=== PATIENT | male | born 1955 | race Caucasian/White ===

== ENCOUNTER 2016-07-05 07:40 | Observation (INO) | payer BC ==
[2016-07-05] MEDS ORDERED: Morphine INJ* 4 MG/ML 1 ML CARPUJECT IV ONE ×3 (08:32→11:52)
[2016-07-05] MEDS ORDERED: Ondansetron INJ* 2 MG/ML VIAL IV ONE (08:32)
[2016-07-05] MEDS ORDERED: NS 0.9% 1000 ML* 1,000 ML IV ONE (08:32)
[2016-07-05 08:51] LABS: Hematocrit 52 % (42-52); Hemoglobin 17.6 g/dl (14.0-18.0); Mean Corpuscular HGB Conc 34 g/dl (31-36); Mean Corpuscular Hemoglobin 29 pg (27-31); Mean Corpuscular Volume 85 fL (80-94); Mean Platelet Volume 7 um3 (7.4-10.4); Red Blood Count 6.09 10^6/ul (4.0-5.4); Red Cell Distribution Width 14 % (10.5-15); White Blood Count 15.6 10^3/ul (3.5-10.8)
[2016-07-05 09:03] LABS: ALT 18 U/L (7-52); AST 15 U/L (13-39); Albumin 4.3 g/dL (3.2-5.2); Alkaline Phosphatase 53 U/L (34-104); Amylase 71 U/L (29-103); Anion Gap 7 mmol/L (2-11); BUN/Creatinine Ratio 12.6 (8-20); Blood Urea Nitrogen 11 mg/dL (6-24); C Reactive Protein 81.62 mg/L (< 5.00); CO2 Carbon Dioxide 26 mmol/L (22-32); Calcium 9.6 mg/dL (8.6-10.3); Chloride 98 mmol/L (101-111); EGFR African American 115.5 (>60); EGFR Non-African American 89.8 (>60); Globulin 3.4 g/dL (2-4); Glucose 131 mg/dL (70-100); Lipase < 10 U/L (11.0-82.0); Potassium 3.9 mmol/L (3.5-5.0); Sodium 131 mmol/L (133-145); Total Protein 7.7 g/dL (6.4-8.9)
--- NOTE | 2016-07-05 09:11 | ED ---
Abdominal Pain/Male - HPI Summary HPI Summary: Patient presents with LLQ pain that radiates to the left flank that has become progressively worse over the last three days. He was able to work this weekend with the pain, but this morning he was in excruciating pain. He had a kidney stone approximately 12 years ago and this feels similar. He feels nauseous and has vomited several times. He feels bloated, like he is constipated and hasn't had a BM since yesterday. He denies urinary symptoms. His pain is constant and intense. He denies SOB, CP, back pain or fever. - History of Current Complaint Chief Complaint: EDAbdPain Stated Complaint: LT SIDE FLANK PAIN Time Seen by Provider: 07/05/16 08:22 Hx Obtained From: Patient, Family/Food Service Director Onset/Duration: Gradual Onset Timing: Constant Severity Initially: Mild Severity Currently: Severe Pain Intensity: 9 Location: Discrete At: LLQ Radiates: Yes Radiates to: Flank Character: Sharp Aggravating Factor(s): Movement Alleviating Factor(s): Nothing Associated Signs And Symptoms: Positive: Nausea, Vomiting - Allergies/Home Medications Allergies/Adverse Reactions: Allergies Allergy/AdvReac Type Severity Reaction Status Date / Time ENVIRONMENTAL Allergy EYES PUFFY Uncoded 07/05/16 07:53 PMH/Surg Hx/FS Hx/Imm Hx Endocrine/Hematology History: Denies: Hx Anticoagulant Therapy, Hx Diabetes, Hx Thyroid Disease Cardiovascular History: Reports: Hx Hypercholesterolemia, Hx Hypertension - ON MEDS, Other Cardiovascular Problems/Disorders Denies: Hx Pacemaker/ICD, Hx Peripheral Vascular Disease Respiratory History: Reports: Hx Sleep Apnea Denies: Hx Asthma, Hx Chronic Obstructive Pulmonary Disease (COPD) GI History: Denies: Hx Ulcer History: Reports: Hx Kidney Stones - YEARS AGO Denies: Hx Renal Disease Musculoskeletal History: Reports: Hx Arthritis, Hx Back Problems Denies: Hx Osteoporosis Sensory History: Reports: Hx Cataracts - BILATERAL Denies: Hx Contacts or Glasses, Hx Glaucoma, Hx Hearing Aid Opthamlomology History: Reports: Hx Cataracts - BILATERAL Denies: Hx Contacts or Glasses, Hx Glaucoma Neurological History: Denies: Hx Headaches, Hx Seizures, Hx Transient Ischemic Attacks (TIA) Psychiatric History: Denies: Hx Anxiety, Hx Depression, Hx Panic Disorder - Surgical History Surgery Procedure, Year, and Place: shoulder surgery. right knee surgery. Deviated septum Hx Anesthesia Reactions: No Infectious Disease History: No Infectious Disease History: Denies: Hx Clostridium Difficile, Hx Hepatitis, Hx Human Immunodeficiency Virus (HIV), Hx of Known/Suspected MRSA, Hx Shingles, Hx Tuberculosis, Hx Known/ Suspected VRE, Hx Known/Suspected VRSA, History Other Infectious Disease, Traveled Outside the [place] in Last 30 Days - Family History Known Family History: Positive: Cardiac Disease, Hypertension - Social History Occupation: Employed Full-time Lives: With Family Alcohol Use: Rare Hx Substance Use: No Substance Use Type: Reports: None Hx Tobacco Use: No Smoking Status (MU): Never Smoked Tobacco Review of Systems Negative: Fever, Chills Negative: Chest Pain Negative: Shortness Of Breath Positive: Abdominal Pain, Vomiting, Nausea. Negative: Diarrhea Positive: flank pain Negative: Headache All Other Systems Reviewed And Are Negative: Yes Physical Exam Triage Information Reviewed: Yes Vital Signs On Initial Exam: Initial Vitals Temp Pulse Resp BP Pulse Ox 99.0 F 105 16 147/93 97 07/05/16 07:47 07/05/16 07:47 07/05/16 07:47 07/05/16 07:47 07/05/16 07:47 Vital Signs Reviewed: Yes Appearance: Positive: Well-Appearing, Pain Distress, Obese Skin: Positive: Warm, Skin Color Reflects Adequate Perfusion, Dry, Soft Head/Face: Positive: Normal Head/Face Inspection Eyes: Positive: EOMI, LIAM, Conjunctiva Clear ENT: Positive: Hearing grossly normal Respiratory/Lung Sounds: Positive: Clear to Auscultation, Breath Sounds Present Cardiovascular: Positive: RRR Abdomen Description: Positive: Soft, Guarding. Negative: Nontender - TTP LLQ pain; non-tender in other areas, CVA Tenderness (R), CVA Tenderness (L), Distended, Hepatomegaly, McBurney's Point Tenderness, Peritoneal Signs, Pulsatile Mass, Splenomegaly Bowel Sounds: Positive: Hypoactive Musculoskeletal: Positive: Strength/ROM Intact. Negative: Edema Left, Edema Right Neurological: Positive: Sensory/Motor Intact, Alert, Oriented to Person Place, Time, NV Bundle Intact Distally Psychiatric: Positive: Affect/Mood Appropriate AVPU Assessment: Alert Diagnostics - Vital Signs Vital Signs Temp Pulse Resp BP Pulse Ox 07/05/16 08:42 16 07/05/16 07:47 99.0 F 105 16 147/93 97 - Laboratory Lab Results: Lab Results 07/05/16 Range/Units 08:15 WBC 15.6 H (3.5-10.8) 10^3/ul RBC 6.09 H (4.0-5.4) 10^6/ul Hgb 17.6 (14.0-18.0) g/dl Hct 52 (42-52) % MCV 85 (80-94) fL MCH 29 (27-31) pg MCHC 34 (31-36) g/dl RDW 14 (10.5-15) % Plt Count 257 (150-450) 10^3/ul MPV 7 L (7.4-10.4) um3 Neut % (Auto) 87.5 H (38-83) % Lymph % (Auto) 5.5 L (25-47) % [place] % (Auto) 6.6 (1-9) % Eos % (Auto) 0.1 (0-6) % Baso % (Auto) 0.3 (0-2) % Absolute Neuts (auto) 13.7 H (1.5-7.7) 10^3/ul Absolute Lymphs (auto) 0.9 L (1.0-4.8) 10^3/ul Absolute Monos (auto) 1.0 H (0-0.8) 10^3/ul Absolute Eos (auto) 0 (0-0.6) 10^3/ul Absolute Basos (auto) 0 (0-0.2) 10^3/ul Absolute Nucleated RBC 0.01 10^3/ul Nucleated RBC % 0 Result Diagrams: 07/05/16 08:15 07/05/16 08:15 Lab Statement: Any lab studies that have been ordered have been reviewed, and results considered in the medical decision making process. - CT No standard instances CT Interpretation: Positive (See Comments) CT Interpretation Completed By: Radiologist - Diverticulitis Re-Evaluation - Re-Evaluation First Eval Re-Evaluation Time: 09:30 Change: Worse - pain increased Second Eval Re-Evaluation Time: 11:00 Change: Improved Third Eval Re-Evaluation Time: 11:45 Change: Worse Fourth Eval Re-Evaluation Time: 12:30 Change: Improved Abdominal Pain Fem Course/Dx - Diagnoses Differential Diagnosis/HQI/PQRI: Abdominal Aortic Aneurysm, Appendicitis, Bowel Obstruction, Constipation, Diverticulitis, Gall Bladder Disease, Renal Colic, Urinary Tract Infection Provider Diagnoses: Diverticulitis - Provider Notifications Instructed by Provider To: Have Pt Call For Appt. Discharge - Discharge Plan Condition: Stable Disposition: HOME Prescriptions: Amoxicillin/Clavulanate TAB* [Augmentin TAB 500 mg*] 500 mg PO TID #20 tab Ondansetron ODT TAB* [Zofran Odt TAB*] 4 mg PO Q8H PRN #15 tab.odt PRN Reason: Nausea oxyCODONE/Acetamin 5/325 MG* [Percocet 5/325 TAB*] 1 tab PO Q8H PRN #6 tab MDD 3 PRN Reason: Pain Patient Education Materials: Diverticulitis (ED), Diverticulitis Diet (ED) Referrals: Abi Alcantar MD [Primary Care Provider] - Additional Instructions: Please take your antibiotics until they are completely gone. Use pain medication as needed and follow-up with your primary care provider this week for re-evaluation. Return to the emergency department if symptoms worsen.
--- NOTE | 2016-07-05 09:16 | RAD ---
INDICATION: Left flank dominant pain. COMPARISON: Comparison is made with a prior CT of the abdomen and pelvis from July 08, 2015. TECHNIQUE: Multiple real-time images of the left kidney were obtained. FINDINGS: The left kidney is normal in size shape and echogenicity. The kidney measured 12.4 x 7.0 x 5.6. cm. There are 2 small cysts in the midportion of the left kidney measuring 0.8 x 0.8 x 1.0 cm and 1.2 x 1.2 x 0.8 cm. No hydronephrosis is seen. IMPRESSION: NO EVIDENCE FOR HYDRONEPHROSIS.
[2016-07-05 09:38] LABS: Urine Bacteria Absent (Absent); Urine Bilirubin Negative (Negative); Urine Glucose Negative (Negative); Urine Nitrite Negative (Negative)
[2016-07-05] MEDS ORDERED: Iohexol 300* (CONTRAST) 10 ML SDV IV ONE (10:00)
--- NOTE | 2016-07-05 11:54 | RAD ---
CLINICAL HISTORY: Left lower quadrant pain COMPARISON: July 08, 2015 TECHNIQUE: Multiple contiguous axial CT scans were obtained of the abdomen and pelvis after the administration of intravenous contrast. Coronal and sagittal multiplanar reformations are submitted for review. Oral contrast was administered. Delayed images were obtained through the abdomen FINDINGS: LUNG BASES: The lung bases are clear. LIVER: There are multiple low-attenuation hepatic parenchymal lesions. These are too small to definitively characterize. These are similar to the previous noncontrast examination. BILE DUCTS: There is no intrahepatic or extrahepatic biliary dilatation. GALLBLADDER: The gallbladder is not visualized. Surgical clips are noted in the gallbladder fossa. PANCREAS: The pancreas is normal, without mass or ductal dilatation. SPLEEN: Normal in size and appearance. UPPER GI TRACT: Evaluation of the gastrointestinal tract is limited by incomplete gastric distention. There is moderate hiatal hernia. SMALL BOWEL AND MESENTERY: The small bowel is normal in contour, course, and caliber. There is no obstruction or dilatation. COLON: There is diverticulosis of the descending and sigmoid colon. There is extensive stranding of the perisigmoid fat with mucosal thickening. There is a small amount of fluid tracking along the lateroconal fascia, without loculated fluid collection. ADRENALS: Normal bilaterally. KIDNEYS: Small renal cysts are noted. There is no hydronephrosis or appreciable nephrolithiasis. BLADDER: The bladder is smooth in contour. PELVIC ORGANS: The prostate is diffusely enlarged. The seminal vesicles are symmetric. AORTA: There is mild calcific atherosclerotic disease of the abdominal aorta and its branches, without aneurysmal dilatation IVC: Unremarkable LYMPH NODES: There is no lymphadenopathy by size criteria. ABDOMINAL WALL: There is no evidence for abdominal wall hernia. BONES AND SOFT TISSUES: Degenerative changes are noted. There is a stable compression deformity of L1. OTHER: None IMPRESSION: DIVERTICULITIS, WITHOUT LOCULATED FLUID COLLECTION TO SUGGEST ABSCESS.
[2016-07-05] MEDS ORDERED: Amoxicillin/Clavulanate TAB* 500 MG PO ONE (12:04)
[2016-07-05] MEDS ORDERED: Acetaminophen TAB* 325 MG PO ONE (12:44)
[2016-07-05] MEDS ORDERED: Morphine INJ* 4 MG/ML 1 ML CARPUJECT IV PRN (15:05)
[2016-07-05] MEDS ORDERED: Ondansetron INJ* 2 MG/ML VIAL IV PRN (15:05)
[2016-07-05] MEDS ORDERED: Acetaminophen TAB* 325 MG PO PRN (15:05)
[2016-07-05] MEDS: Ciprofloxacin 400MG IVPREMIX(* 400 MG/200 ML BAG IVPB SCH (15:42)
[2016-07-05] MEDS: metroNIDAZOLE IV 500 MG/100ML* 500 MG/100 ML BAG IVPB SCH (17:24)
[2016-07-05] MEDS: NS 0.9% 1000 ML* 1,000 ML IV SCH (17:25)
--- NOTE | 2016-07-05 20:24 | HP ---
ADMISSION HISTORY AND PHYSICAL: DATE OF ADMISSION: 07/05/16 PRIMARY CARE PROVIDER: Dr. Alcantar. HEALTHCARE PROXY: His . CODE STATUS: Full. CHIEF COMPLAINT: Abdominal pain. HISTORY OF PRESENT ILLNESS: This is a 61-year-old man who had been in his usual state of health, for the last 3 days started feeling unwell, bloated, and constipated associated with abdominal pain everywhere, also including his back and his belly. He went to work over the weekend over the last 2 days; however, was eating less and what he ate did not taste good. Last night while watching football, he felt sudden onset nausea and vomiting which continued overnight up to 6 times. He was unable to tolerate any food or medication. He tried to take Tylenol; however, vomited up as well as tried to take milk of magnesia thinking it was constipation, also threw it up. He described the pain as stabbing, worse on the left side of the abdomen. He presents to the emergency room where a CT abdomen and pelvis was notable for diverticulitis without associated perforation or abscess. The hospitalist service was consulted for admission. He notes at home he had not had a fever. He did check, it was 99 degrees Fahrenheit. He did not have any chills or diaphoresis. When seen by this author, he had received morphine at least 3 times in the emergency room and the pain was well controlled if he did not move. He had no other complaints. PAST MEDICAL HISTORY: 1. Hypertension. 2. Hyperlipidemia. 3. Obstructive sleep apnea, on CPAP. 4. History of kidney stone x1. 5. Cataract removal bilaterally. 6. Shoulder and knee surgeries, remote. MEDICATIONS: Valsartan 160/25 daily. ALLERGIES: No known drug allergies. FAMILY HISTORY: Father with CAD. SOCIAL HISTORY: No history of tobacco. Rare alcohol. Drinks maybe one time per month. Employed as a [employer]. REVIEW OF SYSTEMS: As per HPI. Otherwise, all other systems negative. PHYSICAL EXAMINATION VITAL SIGNS: In the emergency room, 119/62, heart rate 72, respiratory rate 16 , 93% on room air, T-max in the emergency room was 101.6. LABORATORY DATA AND DIAGNOSTIC STUDIES: Labs reviewed. White blood cell count 15.6, 87.5% neutrophils, hemoglobin 17.6, platelets 257. Sodium 131, chloride 98, BUN 11, creatinine 0.87, glucose 131. CRP of 81, lipase less than 10, and amylase 71. Urine is positive for 2+ blood and squamous epithelial cells. Data reviewed, impression: Diverticulitis without loculated fluid collection to suggest abscess involving the descending and sigmoid colon. There is extensive stranding of the perisigmoid fat with mucosal stranding. There is a small amount of fluid tracking along the lateral conal fascia without loculated fluid collection. ASSESSMENT AND PLAN: This is a pleasant 61-year-old man, past medical history of hypertension, hyperlipidemia, and obstructive sleep apnea presenting with abdominal pain, found with sigmoid diverticulitis without associated perforation or abscess. Diverticulitis: Cipro, Flagyl IV. Normal saline fluid resuscitation. We will continue clear liquid diet. The patient has decreased appetite, difficulty tolerating food at this time. Pain control. Obstructive sleep apnea: Continue CPAP at night. Hypertension: Hold antihypertensives this evening. Restart in the morning if blood pressure will tolerate. Hyperlipidemia: Stable off medications. DVT prophylaxis: Heparin subcu. CC: Dr. Alcantar* [id number]/[facility] #: [id number] DALJIT
[2016-07-05] MEDS: Heparin VIAL(*) 5000 UNITS/ML VIAL (FIVE THOUSAND) SUBCUT SCH (22:06)
[2016-07-06] MEDS: metroNIDAZOLE IV 500 MG/100ML* 500 MG/100 ML BAG IVPB SCH ×2 (00:38→08:25)
[2016-07-06] MEDS: NS 0.9% 1000 ML* 1,000 ML IV SCH (02:29)
[2016-07-06] MEDS: Ciprofloxacin 400MG IVPREMIX(* 400 MG/200 ML BAG IVPB SCH ×2 (04:03→15:39)
[2016-07-06] MEDS: Heparin VIAL(*) 5000 UNITS/ML VIAL (FIVE THOUSAND) SUBCUT SCH ×2 (06:19→14:10)
[2016-07-06 07:16] LABS: Hematocrit 46 % (42-52); Hemoglobin 15.7 g/dl (14.0-18.0); Mean Corpuscular HGB Conc 34 g/dl (31-36); Mean Corpuscular Hemoglobin 30 pg (27-31); Mean Corpuscular Volume 87 fL (80-94); Mean Platelet Volume 7 um3 (7.4-10.4); Red Blood Count 5.26 10^6/ul (4.0-5.4); Red Cell Distribution Width 14 % (10.5-15); White Blood Count 9.3 10^3/ul (3.5-10.8)
[2016-07-06 07:34] LABS: BUN/Creatinine Ratio 11.2 (8-20); Calcium 8.8 mg/dL (8.6-10.3); EGFR African American 100.7 (>60); EGFR Non-African American 78.3 (>60); Potassium 3.9 mmol/L (3.5-5.0)
[2016-07-06] MEDS ORDERED: Docusate CAP* 100 MG PO PRN (10:36)
[2016-07-06 11:54] VITALS: BP 122/81
--- NOTE | 2016-07-07 08:15 | DS ---
DISCHARGE SUMMARY: DATE OF ADMISSION: 07/05/16 DATE OF DISCHARGE: 07/06/16 PRIMARY CARE PROVIDER: Abi Alcantar MD PRIMARY DIAGNOSIS: Sigmoid diverticulitis. MEDICATIONS AT DISCHARGE: 1. Ciprofloxacin 500 mg twice daily. 2. Metronidazole 500 mg 2 times a day for 10 additional days. 3. Docusate 100 mg twice daily as needed. 4. Ondansetron ODT 4 mg every 8 hours as needed for nausea. 5. Percocet 5/325 mg one tab every 6 hours as needed for pain. 6. Loratadine 10 mg daily. 7. home medication as needed. PERTINENT IMAGING PERFORMED DURING HOSPITAL STAY: CT abdomen and pelvis, impression: There is diverticulosis at the descending and sigmoid colon. There is extensive stranding of the perisigmoid fat with mucosal thickening. There is a small amount of fluid tracking along the lateral colonic fascia without loculated fluid collection. Diverticulitis without loculated fluid collection such as abscess. HISTORY OF PRESENT ILLNESS AND HOSPITAL COURSE: This is a pleasant 61-year-old man with past medical history as outlined in the history of present illness. On the day of admission, he presented to the hospital with abdominal pain, found to have sigmoid diverticulitis in the emergency room via CAT scan. He did have a fever in the emergency room. He had a significant amount of nausea and vomiting prior to presentation, unable to tolerate p.o. medications. For this reason, he was admitted to the hospital and received IV antibiotics. The following day, he had tolerated clear liquid diet, was requesting solid food. He tolerated solid food for lunch. He is able to tolerate medications. His pain was largely improved and was requesting to return home which was deemed safe. Reasons to return to the ED instructions given to the patient including increasing abdominal pain, continued fevers, chills, night sweats, nausea, vomiting, and diarrhea. The patient and his acknowledged understanding. TIME SPENT: Greater than 45 minutes were spent on discharge of this patient; greater than half was spent [id number] with the patient. CC: Dr. Alcantar * [id number]/[facility] #: [id number] MTDD
== END 2016-07-06 16:10 | disposition home or self-care (01) ==
LOC: ED 07:40 → INTOOBSV 15:06 → SSU 15:06
PROVIDERS: ADMIT Internal Medicine; ATTEND Internal Medicine
DX: K57.32 Diverticulitis of large intestine without perforation or abscess without bleeding (principal); I10 Essential (primary) hypertension; E78.5 Hyperlipidemia, unspecified; G47.33 Obstructive sleep apnea (adult) (pediatric); Z87.442 Personal history of urinary calculi
CPT/HCPCS: 36415; 74177; 76775; 80048; 80053; 81003; 81015; 82150; 83690; 85025; 86140; 94660; 96361; 96372; 96374; 96375; 99285; A9270-GY; G0378; J0744; J1644; J2270; J2405; J3490; Q9967

== ENCOUNTER 2017-10-11 13:35 | Emergency (ER) | payer BC, OTHER ==
--- OUTSIDE RECORDS SUMMARY | 2017-10-11 13:48 | XMS REPORT ---
:1955 External Reference #:[id number] Author Organization [facility] Address [address] [place] [id number] Phone [phone] Care Team Providers Name Role Phone Abi Alcantar MD FACP Primary Care Physician Unavailable Payers Type Date Identification Numbers Payment Provider Subscriber Commercial Effective: Policy Number: [id number] Of LORIE Visnhu Sorto Deangelo 2014 PayID: [id number] [facility] [address] [place] [address] Problems Date Description Provider Status Onset: 11/05/2015 Obesity Abi Alcantar MD Active Onset: 11/05/2015 Impaired fasting glycaemia Abi Alcantar MD Active Onset: 07/02/2015 H/O: urinary stone Abi Alcantar MD Active Onset: 06/03/2015 Non-steroidal anti-inflammatory agent Abi Alcantar MD Active Onset: 06/03/2015 C/O - a back symptom Abi Alcantar MD Active Onset: 06/03/2015 Low back pain Abi Alcantar MD Active Onset: 05/19/2015 Arthralgia of the ankle and/or foot Abi Alcantar MD Active Onset: 05/19/2015 Obstructive sleep apnea syndrome Abi Alcantar MD Active Onset: 05/19/2015 Blood chemistry abnormal Abi Alcantar MD Active Onset: 05/19/2015 Pure hypercholesterolemia Abi Alcantar MD Active Onset: 03/10/2015 Essential hypertension Abi Alcantar MD Active Onset: 02/03/2015 Essential hypertension Abi Alcantar MD Active Onset: 02/03/2015 Backache Abi Alcantar MD Active Onset: 02/03/2015 Mixed hyperlipidemia Abi Alcantar MD Active Social History Type Date Description Comments Marital Status Occupation [employer] Work Status Currently Working Cigarette Use Never Smoked Cigarettes ETOH Use Rarely consumes alcohol Smoking Patient has never smoked Recreational Drug Use Denies Drug Use Daily Caffeine Consumes on average 2 cups of coffee per day Enjoy Exercising Enjoys exercising Exercise Type/Frequency 11/29/2014 Walks daily Weights 2-3x/wk. Allergies, Adverse Reactions, Alerts Date Description Reaction Status Severity Comments 02/03/2015 NKDA active 11/29/2014 Pollen Runny nose, sneezing active Mild to Moderate 11/29/2014 Dust Mites Runny nose, sneezing active Mild Medications Medication Date Status Form Strength Qnty SIG Indications Ordering Provider Oxycodone-Acetam 10/01/ Active Tablets 5-325mg S22.41xA Unknown inophen 2017 Ibuprofen 200 10/01/ Active Tablets 200mg 3 three S22.41xA Unknown 2018 times a day as needed Neurontin 11/24/ Active Capsules 100mg 150cap take 2 M54.5 Alex A 2017 s capsule by MD Katharine mouth in morning and 3 at night for chronic back pain Valsartan-Hydroc 09/01/ Active Tablets 160-25mg 30tabs take 1 I10 Alex A hlorothiazide 2017 tablet by MD Katharine mouth daily for high blood pressure Cpap 06/13/ Active G47.33 [facility] [place] [facility] Neurontin 09/15/ Hx Capsules 100mg 90caps take 1 M54.5 Alex A 2017 - capsule by MD Katharine 11/24/ mouth in 2016 morning and 2 at night for chronic back pain Miralax 07/15/ Hx Powder 3350NF 510uni 17 gram K59.00 Alex A 2017 - ts powder in MD Katharine oz of 2017 water once daily as needed Ciprofloxacin 07/06/ Hx Tablets 500mg 1 by mouth K57.32 Unknown HCL 2017 - twice a 07/13/ day 2017 Metronidazole 07/06/ Hx Tablets 500mg 1 by mouth K57.32 Unknown 2017 - three 07/13/ times a 2016 day Oxycodone-Acetam 07/06/ Hx Tablets 5-325mg K57.32 Unknown inophen 2017 - 2016 Atenolol 05/16/ Hx Tablets 25mg 1 by mouth R06.02 Saranya 2016 - every day Ehsan 2015 I10 Aspir-Low 10/22/2015 - Hx Tablets DR 81mg take 1 tablet R06.02 Alex A 05/13/2016 by mouth daily MD Katharine for treatment to prevent blood clotting Turmeric 09/12/2015 - Hx Capsules 500mg 1 by mouth Unknown 05/26/2016 every day Meloxicam 06/03/2015 - Hx Tablets 15mg 30tab Take 1 tablet M54.5 Alex A 06/13/2015 s by mouth daily MD Katharine for arthritis Z79.1 Cymbalta 06/03/2015 - Hx Caps DR 20mg take 1 capsule M54.5 Unknown 08/11/2015 Part every other day for depression and chronic pain Valsartan-Hyd 05/19/2015 - Hx Tablets 160-25mg 30ta take 1 tablet I10 Alex A rochlorothiaz 07/04/2016 bs by mouth daily MD Katharine antonio for high blood pressure Procardia XL 04/02/2015 - Hx Tablets ER 90mg 30ta take 1 tablet I10 Alex A 05/19/2015 24HR bs by mouth daily MD Kathairne for high blood pressure Meloxicam 04/02/2015 - Hx Tablets 15mg 30ta Take 1 tablet M25.50 Alex A 05/18/2015 bs by mouth daily MD Katharine for arthritis M54.9 Valsartan-Hydrochlorothiazide 03/25/2015 - Hx Tablets 160-25mg Take 1 I10 Alex 04/02/2015 tablet by A sylvia Alcantar MD daily for high blood pressure Tylenol 8 Hour 03/25/2015 - Hx Tablets 650mg Take 1 M25. Alex 04/02/2015 ER tablet by 50 A sylvia Alcantar MD every 8 hours as needed for pain M54.5 Cetirizine HCL 03/18/2015 - Hx Tablets 10mg take 1 tablet J30.9 Alex A 05/18/2015 by mouth MD Katharine daily for hayfever Amlodipine Besylate 03/10/2015 - Hx Tablets 5mg 30ta take 1 tablet I10 Alex A 03/25/2015 bs by mouth MD Katharine daily for high blood pressure Meloxicam 03/10/2015 - Hx Tablets 15mg 30ta Take 1 tablet M25.50 Alex A 03/25/2015 bs by mouth MD Kahtarine daily as needed for arthritis Cyclobenzaprine HCL 02/03/2015 - Hx Tablets 10mg 30ta Take 1 tablet 724.5 Alex A 03/10/2015 bs by mouth 3 MD Katharine times per day for muscle spasm with pain as needed M62.830 M54.5 Tylenol 8 Hour 02/03/2015 - Hx Tablets ER 650mg Take 1 tablet by M25.50 Alex A 02/03/2015 mouth every 8 MD Katharine hours as needed for pain Doxycycline 12/11/2014 - Hx Capsules 100mg 14c 1 tab by mouth 088.81 Ramesh Armstrong Hyclate 01/07/2015 aps twice a day [place], LINING CASER-C Pravastatin 12/10/2014 - Hx Tablets 20mg 30t 1 tab every day 272.2 Ramesh Armstrong Sodium 02/03/2015 abs every night for [place], hyperlipidemia LINING CASER-C Probiotic 11/11/2013 - Hx Capsules 1Cap 1 cap by mouth Unknown 05/18/2015 twice daily for digestive support Cymbalta 06/13/2006 - Hx Caps DR 20mg take 1 capsule M54.5 Marco A, 06/03/2015 Part once daily for Castillo depression and MD James chronic pain Celecoxib 06/13/2004 - Hx Capsules 200mg 1 tab by mouth M54.5 Pollack, 02/03/2015 twice a day Preston García MD Claritin 06/13/2004 - Hx Tablets 10mg 1 by mouth every 995.3 Unknown 05/18/2015 day as needed for congestion Valsartan-Hydr 06/13/1994 - Hx Tablets 160-25mg 30t 1 tab by mouth I10 Ramesh Armstrong ochlorothiazid 03/10/2015 abs every day jaime Lin Pravastatin 06/13/1994 - Hx Tablets 40mg 1 by mouth at 272.2 Strickland, Sodium 12/10/2014 bedtime Castillo Ramirez MD Pravastatin 06/13/1994 - Hx Tablets 40mg Take 1 tablet by 272.2 Unknown Sodium 12/10/2014 mouth daily for hyperlipidemia Ra Col-Rite - Hx Capsules 100mg take 1 capsule Unknown 11/24/2016 by mouth twice a day for Constipation Immunizations CPT Code Status Date Vaccine Lot # [id number] Given 02/11/2015 Influenza Virus Split 3 Yrs And Above For Intramuscular Use [id number] Given 03/13/2014 Influenza Virus Vaccine Split Virus Use For Individual 3Yr Older [id number] Given 06/13/2009 Tetanus Preservative Free For Use In Individuals 7 Yrs Or Older Vital Signs Date Vital Result Comment 10/04/2017 Heart Rate 80 /min BP Systolic 125 mmHg BP Diastolic 80 mmHg Weight 269.00 lb 03/24/2017 Weight 273.00 lb 11/24/2016 Heart Rate 70 /min BP Systolic 122 mmHg BP Diastolic 70 mmHg Weight 264.00 lb 09/15/2016 Heart Rate 70 /min BP Systolic 130 mmHg BP Diastolic 70 mmHg Weight 260.00 lb 07/28/2016 Heart Rate 72 /min BP Systolic 140 mmHg BP Diastolic 85 mmHg 07/21/2016 BP Systolic 130 mmHg BP Diastolic 80 mmHg 07/15/2016 Heart Rate 66 /min BP Systolic 130 mmHg BP Diastolic 75 mmHg Weight 272.00 lb 07/08/2016 Body Temperature 97.9 F Weight 275.00 lb 05/26/2016 Body Temperature 98.3 F O2 % BldC Oximetry 94 % Heart Rate 56 /min BP Systolic 105 mmHg BP Diastolic 70 mmHg BMI (Body Mass Index) 39.0 kg/m2 Weight 272.00 lb Height 70 inches 5'10" 05/14/2016 Ejection Fraction 55-60% 03/03/2016 BP Systolic 130 mmHg BP Diastolic 80 mmHg Weight 272.00 lb 11/05/2015 Heart Rate 70 /min BP Systolic 122 mmHg BP Diastolic 70 mmHg BMI (Body Mass Index) 38.7 kg/m2 Weight 270.00 lb Height 70 inches 5'10" 10/22/2015 O2 % BldC Oximetry 95 % Heart Rate 58 /min BP Systolic 115 mmHg BP Diastolic 80 mmHg Weight 275.00 lb 07/02/2015 Heart Rate 70 /min BP Systolic 126 mmHg BP Diastolic 80 mmHg 06/03/2015 Heart Rate 70 /min BP Systolic 125 mmHg BP Diastolic 70 mmHg 05/19/2015 O2 % BldC Oximetry 95 % Heart Rate 69 /min BP Systolic 170 mmHg BP Diastolic 90 mmHg BMI (Body Mass Index) 39.7 kg/m2 Weight 277.00 lb Height 70 inches 5'10" 04/02/2015 Heart Rate 70 /min BP Systolic 130 mmHg BP Diastolic 80 mmHg 03/18/2015 Heart Rate 72 /min BP Systolic 150 mmHg BP Diastolic 90 mmHg 03/10/2015 Heart Rate 78 /min BP Systolic 125 mmHg BP Diastolic 80 mmHg 02/03/2015 Heart Rate 56 /min BP Systolic 125 mmHg BP Diastolic 80 mmHg 12/17/2014 Body Temperature 98.0 F O2 % BldC Oximetry 95 % Heart Rate 69 /min Weight 264.00 lb at home, unclothed 11/29/2014 Body Temperature 97.8 F O2 % BldC Oximetry 98 % Heart Rate 92 /min BP Systolic 132 mmHg BP Diastolic 80 mmHg BMI (Body Mass Index) 37.5 kg/m2 Weight 269.00 lb in office, clothed Height 71 inches 5'11" Results Test Date Test Result H/L Range Note Liver Function Panel 12/31/2016 Total Protein 6.8 g/dL 6.4-8.9 Albumin 4.1 g/dL 3.2-5.2 Globulin 2.7 g/dL 2-4 Albumin/Globulin Ratio 1.5 1-3 Total Bilirubin 0.70 mg/dL 0.2-1.0 Direct Bilirubin 0.10 mg/dL 0.03-0.18 Indirect Bilirubin 0.6 mg/dL 0.3-1.0 Alkaline Phosphatase 49 U/L 34-104 Alt 18 U/L 7-52 Ast 15 U/L 13-39 Basic Metabolic Panel 11/16/2016 Sodium 134 mmol/L 133-145 Potassium 4.1 mmol/L 3.5-5.0 Chloride 99 mmol/L Low 101-111 Co2 Carbon Dioxide 27 mmol/L 22-32 Anion Gap 8 mmol/L 2-11 Glucose 105 mg/dL High 70-100 Blood Urea Nitrogen 18 mg/dL 6-24 Creatinine 0.85 mg/dL 0.67-1.17 BUN/Creatinine Ratio 21.2 High 8-20 Calcium 9.3 mg/dL 8.6-10.3 Egfr Non- 92.3 >60 Egfr 118.7 >60 1 Lipid Profile (Trig/Chol/HDL) 11/16/2016 Triglycerides 123 mg/dL <150 2 Cholesterol 230 mg/dL High <200 3 HDL Cholesterol 47.0 mg/dL >40 4 LDL Cholesterol 158 mg/dL High <130 5 Laboratory test 11/16/2016 Hemoglobin A1c 6.0 % High Less than 6.0 6 finding (Glyco HGB) CBC Auto Diff 07/13/2016 White Blood Count 6.1 10^3/uL 3.5-10.8 Red Blood Count 5.48 10^6/uL High 4.0-5.4 Hemoglobin 15.8 g/dL 14.0-18.0 Hematocrit 47 % 42-52 Mean Corpuscular Volume 86 fL 80-94 Mean Corpuscular Hemoglobin 29 pg 27-31 Mean Corpuscular HGB Conc 34 g/dL 31-36 Red Cell Distribution Width 14 % 10.5-15 Platelet Count 300 10^3/uL 150-450 Mean Platelet Volume 6 um3 Low 7.4-10.4 Abs Neutrophils 4.2 10^3/uL 1.5-7.7 Abs Lymphocytes 1.2 10^3/uL 1.0-4.8 Abs Monocytes 0.5 10^3/uL 0-0.8 Abs Eosinophils 0.1 10^3/uL 0-0.6 Abs Basophils 0.1 10^3/uL 0-0.2 Abs Nucleated RBC 0.01 10^3/uL Granulocyte % 70.0 % 38-83 Lymphocyte % 19.4 % Low 25-47 Monocyte % 8.2 % 1-9 Eosinophil % 1.5 % 0-6 Basophil % 0.9 % 0-2 Nucleated Red Blood Cells % 0.1 Basic Metabolic Panel 07/13/2016 Sodium 136 mmol/L 133-145 Potassium 4.4 mmol/L 3.5-5.0 Chloride 100 mmol/L Low 101-111 Co2 Carbon Dioxide 30 mmol/L 22-32 Anion Gap 6 mmol/L 2-11 Glucose 76 mg/dL 70-100 Blood Urea Nitrogen 18 mg/dL 6-24 Creatinine 0.99 mg/dL 0.67-1.17 BUN/Creatinine Ratio 18.2 8-20 Calcium 9.4 mg/dL 8.6-10.3 Egfr Non- 77.4 >60 Egfr 99.5 >60 7 Comp Metabolic Panel 07/05/2016 Sodium 131 mmol/L Low 133-145 Potassium 3.9 mmol/L 3.5-5.0 Chloride 98 mmol/L Low 101-111 Co2 Carbon Dioxide 26 mmol/L 22-32 Anion Gap 7 mmol/L 2-11 Glucose 131 mg/dL High 70-100 Blood Urea Nitrogen 11 mg/dL 6-24 Creatinine 0.87 mg/dL 0.67-1.17 BUN/Creatinine Ratio 12.6 8-20 Calcium 9.6 mg/dL 8.6-10.3 Total Protein 7.7 g/dL 6.4-8.9 Albumin 4.3 g/dL 3.2-5.2 Globulin 3.4 g/dL 2-4 Albumin/Globulin Ratio 1.3 1-3 Total Bilirubin 1.00 mg/dL 0.2-1.0 Alkaline Phosphatase 53 U/L 34-104 Alt 18 U/L 7-52 Ast 15 U/L 13-39 Egfr Non- 89.8 >60 Egfr 115.5 >60 8 Laboratory test finding 07/05/2016 Amylase 71 U/L 29-103 Lipase < 10 U/L Low 11.0-82.0 C Reactive Protein 81.62 mg/L High < 5.00 9 CBC Auto Diff 07/05/2016 White Blood Count 15.6 10^3/uL High 3.5-10.8 Red Blood Count 6.09 10^6/uL High 4.0-5.4 Hemoglobin 17.6 g/dL 14.0-18.0 Hematocrit 52 % 42-52 Mean Corpuscular Volume 85 fL 80-94 Mean Corpuscular Hemoglobin 29 pg 27-31 Mean Corpuscular HGB Conc 34 g/dL 31-36 Red Cell Distribution Width 14 % 10.5-15 Platelet Count 257 10^3/uL 150-450 Mean Platelet Volume 7 um3 Low 7.4-10.4 Abs Neutrophils 13.7 10^3/uL High 1.5-7.7 Abs Lymphocytes 0.9 10^3/uL Low 1.0-4.8 Abs Monocytes 1.0 10^3/uL High 0-0.8 Abs Eosinophils 0 10^3/uL 0-0.6 Abs Basophils 0 10^3/uL 0-0.2 Abs Nucleated RBC 0.01 10^3/uL Granulocyte % 87.5 % High 38-83 Lymphocyte % 5.5 % Low 25-47 Monocyte % 6.6 % 1-9 Eosinophil % 0.1 % 0-6 Basophil % 0.3 % 0-2 Nucleated Red Blood Cells % 0 Urinalysis Profile 07/05/2016 Urine Color Yellow Urine Appearance Clear Urine Specific [place] 1.008 Low 1.010-1.030 Urine pH 7.0 5-9 Urine Urobilinogen Negative Negative Urine Ketones Negative Negative Urine Protein Negative Negative Urine Leukocytes Negative Negative Urine Blood 2+ Negative Urine Nitrite Negative Negative Urine Bilirubin Negative Negative Urine Glucose Negative Negative Urine White Blood Cell Absent Absent Urine Red Blood Cell 1+(3-5/hpf) Absent Urine Bacteria Absent Absent Urine Squamous Epithelial Cell Present Absent Laboratory test 05/13/2016 Hemoglobin A1c (Glyco 5.8 % Less than 6.0 10 finding HGB) Lipid Profile 05/13/2016 Triglycerides 145 mg/dL <150 11 (Trig/Chol/HDL) Cholesterol 253 mg/dL High <200 12 HDL Cholesterol 45.8 mg/dL >40 13 LDL Cholesterol 178 mg/dL High <130 14 Urinalysis Profile 05/13/2016 Urine Color Yellow Urine Appearance Cloudy Urine Specific [place] 1.025 1.010-1.030 Urine pH 5.0 5-9 Urine Urobilinogen Negative Negative Urine Ketones Negative Negative Urine Protein Negative Negative Urine Leukocytes Negative Negative Urine Blood 1+ Negative Urine Nitrite Negative Negative Urine Bilirubin Negative Negative Urine Glucose Negative Negative Urine White Blood Cell Absent Absent Urine Red Blood Cell Trace(0-2/hpf) Absent Urine Bacteria Absent Absent Urine Squamous Epithelial Cell Present Absent Comp Metabolic Panel 05/13/2016 Sodium 133 mmol/L 133-145 Potassium 4.4 mmol/L 3.5-5.0 Chloride 100 mmol/L Low 101-111 Co2 Carbon Dioxide 27 mmol/L 22-32 Anion Gap 6 mmol/L 2-11 Glucose 104 mg/dL High 70-100 Blood Urea Nitrogen 19 mg/dL 6-24 Creatinine 0.92 mg/dL 0.67-1.17 BUN/Creatinine Ratio 20.7 High 8-20 Calcium 9.3 mg/dL 8.6-10.3 Total Protein 7.1 g/dL 6.4-8.9 Albumin 4.2 g/dL 3.2-5.2 Globulin 2.9 g/dL 2-4 Albumin/Globulin Ratio 1.4 1-3 Total Bilirubin 0.60 mg/dL 0.2-1.0 Alkaline Phosphatase 43 U/L 34-104 Alt 21 U/L 7-52 Ast 16 U/L 13-39 Egfr Non- 84.5 >60 Egfr 108.7 >60 15 CBC No Diff 05/13/2016 White Blood Count 5.2 10^3/uL 3.5-10.8 Red Blood Count 5.81 10^6/uL High 4.0-5.4 Hemoglobin 16.9 g/dL 14.0-18.0 Hematocrit 50 % 42-52 Mean Corpuscular Volume 87 fL 80-94 Mean Corpuscular Hemoglobin 29 pg 27-31 Mean Corpuscular HGB Conc 34 g/dL 31-36 Red Cell Distribution Width 14 % 10.5-15 Platelet Count 261 10^3/uL 150-450 Mean Platelet Volume 7 um3 Low 7.4-10.4 Basic Metabolic Panel 02/26/2016 Sodium 134 mmol/L 133-145 16 Potassium 4.2 mmol/L 3.5-5.0 16 Chloride 102 mmol/L 101-111 16 Co2 Carbon Dioxide 27 mmol/L 22-32 16 Anion Gap 5 mmol/L 2-11 16 Glucose 95 mg/dL 70-100 16 Blood Urea Nitrogen 19 mg/dL 6-24 16 Creatinine 0.93 mg/dL 0.67-1.17 16 BUN/Creatinine Ratio 20.4 High 8-20 16 Calcium 9.1 mg/dL 8.6-10.3 16 Egfr Non- 83.5 >60 16 Egfr 107.3 >60 16, 17 Laboratory test finding 02/26/2016 Hemoglobin A1c (Glyco 6.0 % Less than 6.0 16, 18 HGB) Insulin Level 12.8 mcIU/mL 2.6 - 24.9 16, 19 Xray 11/04/2015 Chest, 2 Views Normal CBC No Diff 10/23/2015 White Blood Count 5.6 10^3/uL 3.5-10.8 16 Red Blood Count 5.75 10^6/uL High 4.0-5.4 16 Hemoglobin 16.5 g/dL 14.0-18.0 16 Hematocrit 51 % 42-52 16 Mean Corpuscular Volume 88 fL 80-94 16 Mean Corpuscular Hemoglobin 29 pg 27-31 16 Mean Corpuscular HGB Conc 33 g/dL 31-36 16 Red Cell Distribution Width 14 % 10.5-15 16 Platelet Count 232 10^3/uL 150-450 16 Mean Platelet Volume 7 um3 Low 7.4-10.4 16 Basic Metabolic Panel 10/23/2015 Sodium 133 mmol/L 133-145 16 Potassium 4.0 mmol/L 3.5-5.0 16 Chloride 99 mmol/L Low 101-111 16 Co2 Carbon Dioxide 27 mmol/L 22-32 16 Anion Gap 7 mmol/L 2-11 16 Glucose 108 mg/dL High 70-100 16 Blood Urea Nitrogen 17 mg/dL 6-24 16 Creatinine 0.98 mg/dL 0.67-1.17 16 BUN/Creatinine Ratio 17.3 8-20 16 Calcium 9.3 mg/dL 8.6-10.3 16 Egfr Non- 78.6 >60 16 Egfr 101.0 >60 16, 20 Laboratory test 10/23/2015 D Dimer Quantitative < 200 Less Than 16, 21 finding ng/mL 230 Lipid Profile 10/23/2015 Triglycerides 186 mg/dL High <150 16, 22 (Trig/Chol/HDL) Cholesterol 229 mg/dL High <200 16, 23 HDL Cholesterol 41.4 mg/dL >35 16, 24 LDL Cholesterol 150 mg/dL High <130 16, 25 Xray 10/23/2015 Chest, 2 Views ? LLL infiltrate Order 10/22/2015 Echocardiogram, Normal Exercise Stress Order 10/22/2015 EKG Normal Xray 07/08/2015 CT Abdomen and No stone, HH. BPH, # Pelvis without contrast Laboratory test 06/24/2015 PSA Screening 1.791 ng/mL 0-4.000 26 finding Basic Metabolic Panel 06/24/2015 Sodium 134 mmol/L 133-145 Potassium 4.3 mmol/L 3.5-5.0 Chloride 97 mmol/L Low 101-111 Co2 Carbon Dioxide 30 mmol/L 22-32 Anion Gap 7 mmol/L 2-11 Glucose 98 mg/dL 70-100 Blood Urea Nitrogen 17 mg/dL 6-24 Creatinine 1.05 mg/dL 0.67-1.17 BUN/Creatinine Ratio 16.2 8-20 Calcium 9.6 mg/dL 8.6-10.3 Egfr Non- 72.5 >60 Egfr 93.3 >60 27 Urinalysis Profile 06/24/2015 Urine Color Yellow Urine Appearance Cloudy Urine Specific [place] 1.023 1.010-1.030 Urine pH 5.0 5-9 Urine Urobilinogen Negative Negative Urine Ketones Negative Negative Urine Protein Negative Negative Urine Leukocytes Negative Negative Urine Blood 1+ Negative Urine Nitrite Negative Negative Urine Bilirubin Negative Negative Urine Glucose Negative Negative Urine White Blood Cell Trace(0-5/hpf) Absent Urine Red Blood Cell Trace(0-2/hpf) Absent Urine Bacteria Absent Absent Urine Squamous Epithelial Cell Present Absent CBC No Diff 05/13/2015 White Blood Count 5.4 10^3/uL 4.8-10.8 Red Blood Count 5.51 10^6/uL High 4.0-5.4 Hemoglobin 16.0 g/dL 14.0-18.0 Hematocrit 49 % 42-52 Mean Corpuscular Volume 89 fL 80-94 Mean Corpuscular Hemoglobin 29 pg 27-31 Mean Corpuscular HGB Conc 33 g/dL 31-36 Red Cell Distribution Width 14 % 10.5-15 Platelet Count 287 10^3/uL 150-450 Mean Platelet Volume 7 um3 Low 7.4-10.4 Comp Metabolic Panel 05/13/2015 Sodium 133 mmol/L 133-145 Potassium 4.3 mmol/L 3.5-5.0 Chloride 98 mmol/L Low 101-111 Co2 Carbon Dioxide 30 mmol/L 22-32 Anion Gap 5 mmol/L 2-11 Glucose 99 mg/dL 70-100 Blood Urea Nitrogen 16 mg/dL 6-24 Creatinine 0.97 mg/dL 0.67-1.17 BUN/Creatinine Ratio 16.5 8-20 Calcium 9.5 mg/dL 8.6-10.3 Total Protein 7.0 g/dL 6.4-8.9 Albumin 4.5 g/dL 3.2-5.2 Globulin 2.5 g/dL 2-4 Albumin/Globulin Ratio 1.8 1-3 Total Bilirubin 0.70 mg/dL 0.2-1.0 Alkaline Phosphatase 51 U/L 34-104 Alt 23 U/L 7-52 Ast 18 U/L 13-39 Egfr Non- 79.8 >60 Egfr 102.6 >60 28 Lipid Profile (Trig/Chol/HDL) 05/13/2015 Triglycerides 184 mg/dL 29 Cholesterol 236 mg/dL 30 HDL Cholesterol 49.2 mg/dL 31 LDL Cholesterol 150 mg/dL 32 Urinalysis Profile 05/13/2015 Urine Color Yellow Urine Appearance Clear Urine Specific [place] 1.018 1.010-1.030 Urine pH 5.0 5-9 Urine Urobilinogen Negative Negative Urine Ketones Negative Negative Urine Protein Negative Negative Urine Leukocytes Negative Negative Urine Blood 1+ Negative Urine Nitrite Negative Negative Urine Bilirubin Negative Negative Urine Glucose Negative Negative Urine White Blood Cell Trace(0-5/hpf) Absent Urine Red Blood Cell Trace(0-2/hpf) Absent Urine Bacteria Absent Absent Laboratory test finding 03/28/2015 Uric Acid 7.8 mg/dL High 4.4-7.6 Basic Metabolic Panel 03/28/2015 Sodium 135 mmol/L 133-145 Potassium 4.3 mmol/L 3.5-5.0 Chloride 100 mmol/L Low 101-111 Co2 Carbon Dioxide 27 mmol/L 22-32 Anion Gap 8 mmol/L 2-11 Glucose 106 mg/dL High 70-100 Blood Urea Nitrogen 16 mg/dL 6-24 Creatinine 0.95 mg/dL 0.67-1.17 BUN/Creatinine Ratio 16.8 8-20 Calcium 9.9 mg/dL 8.6-10.3 Egfr Non- 81.7 >60 Egfr 105.1 >60 33 Sylvia Hep-2 02/12/2015 Sylvia Titer (SEE NOTE) <1:80 34 Sylvia Reviewed By MD [place] Pathak 35 Laboratory test finding 02/12/2015 Cortisol 10.36 ?g/dL 36 Sylvia (Anti-Nuclear AB) Screen Reflexed to FA Negative Rheumatoid Factor <15 IU/mL <15 37 Cyclic Citrullinated Pept IgG <15.6 U 38 Uric Acid 8.7 mg/dL High 4.4-7.6 Xray 02/05/2015 Hand, Min. 3 Views, Bilateral DJD CK Isoenzymes 12/03/2014 Creatine Kinase 192 U/L 52 - 336 CK Isoenzyme Elec, Specimen See Comment 39 Creatine Kinase mm 98 % 100 Creatine Kinase MB 0 % 0 Creatine Kinase BB 2 % 0 40 Laboratory test 12/03/2014 TSH (Thyroid Stimulating 2.28 ?IU/mL 0.34- 5.60 41 finding Horm) Lipid Profile 12/03/2014 Triglycerides 137 mg/dL 42 (Trig/Chol/HDL) Cholesterol 166 mg/dL 43 HDL Cholesterol 42.7 mg/dL 44 LDL Cholesterol 96 mg/dL 45 Lyme Western Blot 12/03/2014 Lyme Disease IgG Ab WB Negative Negative Lyme Disease IgG Bands Present p41, kDa Lyme Disease IgM Ab WB Negative Negative Lyme Disease IgM Bands Present No bands detecte <SEE NOTE> kDa 46 Lyme Disease Interpretation See Comment 47 Laboratory test finding 12/03/2014 Erythrocyte Sed Rate 10 mm/Hr 0-20 C Reactive Protein 2.77 mg/L < 5.00 48 Comp Metabolic Panel 12/03/2014 Sodium 134 mmol/L 133-145 Potassium 4.0 mmol/L 3.5-5.0 Chloride 101 mmol/L 101-111 Co2 Carbon Dioxide 27 mmol/L 22-32 Anion Gap 6 mmol/L 2-11 Glucose 97 mg/dL 70-100 Blood Urea Nitrogen 19 mg/dL 6-24 Creatinine 0.89 mg/dL 0.67-1.17 BUN/Creatinine Ratio 21.3 High 8-20 Calcium 9.3 mg/dL 8.6-10.3 Total Protein 6.3 g/dL Low 6.4-8.9 Albumin 4.0 g/dL 3.2-5.2 Globulin 2.3 g/dL 2-4 Albumin/Globulin Ratio 1.7 1-3 Total Bilirubin 0.70 mg/dL 0.2-1.0 Alkaline Phosphatase 46 U/L 34-104 Alt 17 U/L 7-52 Ast 16 U/L 13-39 Egfr Non- 88.1 >60 Egfr 113.3 >60 49 CBC No Diff 12/03/2014 White Blood Count 5.9 10^3/uL 4.8-10.8 Red Blood Count 5.41 10^6/uL High 4.0-5.4 Hemoglobin 15.9 g/dL 14.0-18.0 Hematocrit 48 % 42-52 Mean Corpuscular Volume 89 fL 80-94 Mean Corpuscular Hemoglobin 30 pg 27-31 Mean Corpuscular HGB Conc 33 g/dL 31-36 Red Cell Distribution Width 14 % 10.5-15 Platelet Count 254 10^3/uL 150-450 Mean Platelet Volume 7 um3 Low 7.4-10.4 1 Because ethnic data is not always readily available, this report includes an eGFR for both -Americans and non- Americans. The National Kidney Disease Education Program (NKDEP) does not endorse the use of the MDRD equation for patients that are not between the ages of 18 and 70, are , have extremes of body size, muscle mass, or nutritional status, or are non- or non-. According to the National Kidney Foundation, irrespective of diagnosis, the stage of the disease is based on the level of kidney function: Stage Description GFR(mL/min/1.73 m(2)) 1 Kidney damage with normal or decreased GFR 90 2 Kidney damage with mild decrease in GFR 60-89 3 Moderate decrease in GFR 30-59 4 Severe decrease in GFR 15-29 5 Kidney failure <15 (or dialysis) 2 Desirable <150 Borderline high 150-199 High 200-499 Very High >500 3 Desirable <200 Borderline high 200-239 High >239 4 Low <40 Desirable: 40-60 High: >60 5 Desirable: <100 mg/dL Near Optimal: 100-129 mg/dL Borderline High: 130-159 mg/dL High: 160-189 mg/dL Very High: >189 mg/dL 6 Therapeutic target for the treatment of diabetes Mellitus patients is <7% HBA1C, and in selective patients <6.0%.Please refer to [place] [employer] Diabetic care guidelines for further information. 7 Because ethnic data is not always readily available, this report includes an eGFR for both -Americans and non- Americans. The National Kidney Disease Education Program (NKDEP) does not endorse the use of the MDRD equation for patients that are not between the ages of 18 and 70, are , have extremes of body size, muscle mass, or nutritional status, or are non- or non-. According to the National Kidney Foundation, irrespective of diagnosis, the stage of the disease is based on the level of kidney function: Stage Description GFR(mL/min/1.73 m(2)) 1 Kidney damage with normal or decreased GFR 90 2 Kidney damage with mild decrease in GFR 60-89 3 Moderate decrease in GFR 30-59 4 Severe decrease in GFR 15-29 5 Kidney failure <15 (or dialysis) 8 Because ethnic data is not always readily available, this report includes an eGFR for both -Americans and non- Americans. The National Kidney Disease Education Program (NKDEP) does not endorse the use of the MDRD equation for patients that are not between the ages of 18 and 70, are , have extremes of body size, muscle mass, or nutritional status, or are non- or non-. According to the National Kidney Foundation, irrespective of diagnosis, the stage of the disease is based on the level of kidney function: Stage Description GFR(mL/min/1.73 m(2)) 1 Kidney damage with normal or decreased GFR 90 2 Kidney damage with mild decrease in GFR 60-89 3 Moderate decrease in GFR 30-59 4 Severe decrease in GFR 15-29 5 Kidney failure <15 (or dialysis) 9 Acute inflammation: >10.00 10 Therapeutic target for the treatment of diabetes Mellitus patients is <7% HBA1C, and in selective patients <6.0%.Please refer to [place] [employer] Diabetic care guidelines for further information. 11 Desirable <150 Borderline high 150-199 High 200-499 Very High >500 12 Desirable <200 Borderline high 200-239 High >239 13 Low <40 Desirable: 40-60 High: >60 14 Desirable: <100 mg/dL Near Optimal: 100-129 mg/dL Borderline High: 130-159 mg/dL High: 160-189 mg/dL Very High: >189 mg/dL 15 Because ethnic data is not always readily available, this report includes an eGFR for both -Americans and non- Americans. The National Kidney Disease Education Program (NKDEP) does not endorse the use of the MDRD equation for patients that are not between the ages of 18 and 70, are , have extremes of body size, muscle mass, or nutritional status, or are non- or non-. According to the National Kidney Foundation, irrespective of diagnosis, the stage of the disease is based on the level of kidney function: Stage Description GFR(mL/min/1.73 m(2)) 1 Kidney damage with normal or decreased GFR 90 2 Kidney damage with mild decrease in GFR 60-89 3 Moderate decrease in GFR 30-59 4 Severe decrease in GFR 15-29 5 Kidney failure <15 (or dialysis) 16 PT IS FASTING 17 Because ethnic data is not always readily available, this report includes an eGFR for both -Americans and non- Americans. The National Kidney Disease Education Program (NKDEP) does not endorse the use of the MDRD equation for patients that are not between the ages of 18 and 70, are , have extremes of body size, muscle mass, or nutritional status, or are non- or non-. According to the National Kidney Foundation, irrespective of diagnosis, the stage of the disease is based on the level of kidney function: Stage Description GFR(mL/min/1.73 m(2)) 1 Kidney damage with normal or decreased GFR 90 2 Kidney damage with mild decrease in GFR 60-89 3 Moderate decrease in GFR 30-59 4 Severe decrease in GFR 15-29 5 Kidney failure <15 (or dialysis) 18 Therapeutic target for the treatment of diabetes Mellitus patients is <7% HBA1C, and in selective patients <6.0%.Please refer to [place] [employer] Diabetic care guidelines for further information. 19 Test Performed by: [place] [address] Manager Star: Tj Bocanegra II, M.D., Ph.D. 20 Because ethnic data is not always readily available, this report includes an eGFR for both -Americans and non- Americans. The National Kidney Disease Education Program (NKDEP) does not endorse the use of the MDRD equation for patients that are not between the ages of 18 and 70, are , have extremes of body size, muscle mass, or nutritional status, or are non- or non-. According to the National Kidney Foundation, irrespective of diagnosis, the stage of the disease is based on the level of kidney function: Stage Description GFR(mL/min/1.73 m(2)) 1 Kidney damage with normal or decreased GFR 90 2 Kidney damage with mild decrease in GFR 60-89 3 Moderate decrease in GFR 30-59 4 Severe decrease in GFR 15-29 5 Kidney failure <15 (or dialysis) 21 Please note: The following may produce a false positive D Dimer test: - Rheumatoid factor greater than 60 IU/ml - Plasma hemoglobin greater than 0.05 gm/dl - Bilirubin greater than 50 mg/dl - Lipids greater than 1000 mg/dl - FDP greater than 20 ug/ml 22 Desirable <150 Borderline high 150-199 High 200-499 Very High >500 23 Desirable <200 Borderline high 200-239 High >239 24 Low <40 Desirable: 40-60 High: >60 25 Desirable: <100 mg/dL Near Optimal: 100-129 mg/dL Borderline High: 130-159 mg/dL High: 160-189 mg/dL Very High: >189 mg/dL 26 Serum levels of PSA measured using the [employer] Bacterioscan DXI Hybritech immunoassay should not be interpreted as absolute evidence of the presence or absence of disease. The PSA value should be used in conjunction with other pertinent clinical diagnostic procedures. The values obtained with different assay methods or kits cannot be used interchangeably. 27 Because ethnic data is not always readily available, this report includes an eGFR for both -Americans and non- Americans. The National Kidney Disease Education Program (NKDEP) does not endorse the use of the MDRD equation for patients that are not between the ages of 18 and 70, are , have extremes of body size, muscle mass, or nutritional status, or are non- or non-. According to the National Kidney Foundation, irrespective of diagnosis, the stage of the disease is based on the level of kidney function: Stage Description GFR(mL/min/1.73 m(2)) 1 Kidney damage with normal or decreased GFR 90 2 Kidney damage with mild decrease in GFR 60-89 3 Moderate decrease in GFR 30-59 4 Severe decrease in GFR 15-29 5 Kidney failure <15 (or dialysis) 28 Because ethnic data is not always readily available, this report includes an eGFR for both -Americans and non- Americans. The National Kidney Disease Education Program (NKDEP) does not endorse the use of the MDRD equation for patients that are not between the ages of 18 and 70, are , have extremes of body size, muscle mass, or nutritional status, or are non- or non-. According to the National Kidney Foundation, irrespective of diagnosis, the stage of the disease is based on the level of kidney function: Stage Description GFR(mL/min/1.73 m(2)) 1 Kidney damage with normal or decreased GFR 90 2 Kidney damage with mild decrease in GFR 60-89 3 Moderate decrease in GFR 30-59 4 Severe decrease in GFR 15-29 5 Kidney failure <15 (or dialysis) 29 Desirable <150 Borderline high 150-199 High 200-499 Very High >500 30 Desirable <200 Borderline high 200-239 High >239 31 Low <40 Desirable: 40-60 High: >60 32 Desirable: <100 mg/dL Near Optimal: 100-129 mg/dL Borderline High: 130-159 mg/dL High: 160-189 mg/dL Very High: >189 mg/dL 33 Because ethnic data is not always readily available, this report includes an eGFR for both -Americans and non- Americans. The National Kidney Disease Education Program (NKDEP) does not endorse the use of the MDRD equation for patients that are not between the ages of 18 and 70, are , have extremes of body size, muscle mass, or nutritional status, or are non- or non-. According to the National Kidney Foundation, irrespective of diagnosis, the stage of the disease is based on the level of kidney function: Stage Description GFR(mL/min/1.73 m(2)) 1 Kidney damage with normal or decreased GFR 90 2 Kidney damage with mild decrease in GFR 60-89 3 Moderate decrease in GFR 30-59 4 Severe decrease in GFR 15-29 5 Kidney failure <15 (or dialysis) 34 NEGATIVE 35 [place] 36 AM 8.7-22.4 PM <10 37 Test Performed by: [place] [address] Manager Star: Tj Bocanegra II, M.D., Ph.D. 38 REFERENCE VALUE <20.0 (Negative) Test Performed by: [place] [address] Manager Star: Tj Bocanegra II, M.D., Ph.D. 39 RESULT: If CK result is <100, isoenzyme will not be performed. Test Performed by: [place] [address] Manager Star: Tj Bocanegra II, M.D., Ph.D. 40 Test Performed by: [place] [address] Manager Star: Tj Bocanegra II, M.D., Ph.D. 41 FASTING 42 Desirable <150 Borderline high 150-199 High 200-499 Very High >500 43 Desirable <200 Borderline high 200-239 High >239 44 Low <40 Desirable: 40-60 High: >60 45 Desirable: <100 mg/dL Near Optimal: 100-129 mg/dL Borderline High: 130-159 mg/dL High: 160-189 mg/dL Very High: >189 mg/dL 46 No bands detected 47 Specific serologic response to B. burgdorferi infection is not detected, but cannot rule out early infection during which low or undetectable antibody levels to B. burgdorferi may be present. If clinically indicated, a new serum specimen should be submitted in 7-14 days. ADDITIONAL INFORMATION CDC criteria require >=5 bands for IgG or >=2 bands for IgM for the Immunoblot to be considered positive. Bands (e.g.,p41) may be detected in patients without Lyme disease, and patterns not meeting the CDC criteria should be interpreted with caution. Immunoblot should be ordered only on specimens that are positive or equivocal by a FDA-licensed Lyme disease antibody screening test (e.g., EIA). Test Performed by: [address] [address] Manager Star: Tj Bocanegra II, M.D., Ph.D. 48 Acute inflammation: >10.00 49 Because ethnic data is not always readily available, this report includes an eGFR for both -Americans and non- Americans. The National Kidney Disease Education Program (NKDEP) does not endorse the use of the MDRD equation for patients that are not between the ages of 18 and 70, are , have extremes of body size, muscle mass, or nutritional status, or are non- or non-. According to the National Kidney Foundation, irrespective of diagnosis, the stage of the disease is based on the level of kidney function: Stage Description GFR(mL/min/1.73 m(2)) 1 Kidney damage with normal or decreased GFR 90 2 Kidney damage with mild decrease in GFR 60-89 3 Moderate decrease in GFR 30-59 4 Severe decrease in GFR 15-29 5 Kidney failure <15 (or dialysis) Procedures Date CPT Code Description Status 10/22/2015 44355 Electrocardiogram Complete Completed 12/02/2011 Colonoscopy Completed Encounters Type Date Location Provider CPT E/M Dx Office Visit 10/04/2017 2:00p [place] [address] S22.41xA Office Visit 05/12/2017 11:40a [place] [address] M54.5 Office Visit 03/24/2017 3:00p [place] [address] M54.5 M62.830 Office Visit 11/24/2016 2:00p [place] [address] I10 R73.01 M54.5 Office Visit 09/15/2016 2:20p [place] [address] I10 M54.5 M62.830 Office Visit 07/15/2016 11:00a [place] [address] R79.9 I10 K59.00 Office Visit 07/08/2016 10:00a [place] [address] K57.32 R79.9 Office Visit 05/26/2016 2:00p [place] [address] Z00.01 R06.02 E78.00 I10 R73.01 Office Visit 03/03/2016 2:40p [place] [address] I10 R73.01 Office Visit 11/05/2015 2:00p [place] [address] R06.02 I10 E78.0 R73.01 E66.09 Office Visit 10/22/2015 10:00a [place] [address] R06.02 I10 E78.0 Office Visit 07/02/2015 3:20p [place] [address] I10 R31.2 Z87.442 M54.5 Office Visit 06/03/2015 3:40p [place] [address] M54.5 M62.830 Z79.1 I10 Office Visit 05/19/2015 3:40p [place] [address] Z00.01 Z79.1 Z12.5 I10 R31.2 E78.0 E79.0 G47.33 M25.571 M25.572 Office Visit 04/02/2015 1:40p [place] [address] I10 Z79.1 E79.0 M25.50 M54.9 Office Visit 03/18/2015 2:20p [place] [address] R42 J30.9 J01.80 I10 Office Visit 03/10/2015 1:40p [place] [address] M25.50 E79.0 I10 R53.83 Office Visit 02/03/2015 3:40p [place] [address] 719.49 780.79 724.5 272.2 401.9 V58.69 Office Visit 12/17/2014 3:20p Main Office [facility] [address] 780.79 719.49 272.2 Office Visit 11/29/2014 9:00a Main Office [facility] [address]36 780.79 719.49 272.2 Plan of Care Future Appointment(s):12/22/2017 3:00 pm - Abi Alcantar MD at Main [id number]/04/2017 - Abi Alcantar MDS22.41xA Multiple fractures of ribs, right side, init for clos fxComments:Lifestyle and dietary modifications advised. Medications related potential side effects, general precautions, follow up recommendations discussed with patient in detail. Patient verbalized understanding.
--- NOTE | 2017-10-11 15:36 | RAD ---
INDICATION: Patient reports rib fracture with increasing pain. Evaluate for pneumothorax. COMPARISON: Chest x-ray November 04, 2015 TECHNIQUE: PA and lateral dual-energy views were obtained. FINDINGS: Bones/Soft Tissues: There are no acute bony findings. Cardiomediastinal: The cardiomediastinal silhouette is normal. Lungs: There are no infiltrates. There is no pneumothorax Pleura: There are no pleural effusions. Other: There is a retrocardiac density with an air-fluid level compatible with hiatal hernia. There is degenerative change at the thoracolumbar junction with mild focal kyphosis. IMPRESSION: NO ACTIVE DISEASE OF THE CHEST. HIATAL HERNIA.
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
[2017-10-11 17:08] VITALS: BP 137/101
== END 2017-10-11 16:35 | disposition home or self-care (01) ==
LOC: ED 13:35
DX: R07.89 Other chest pain (principal); S22.41XA Multiple fractures of ribs, right side, initial encounter for closed fracture; V86.59XA Driver of other special all-terrain or other off-road motor vehicle injured in nontraffic accident, initial encounter; Y92.9 Unspecified place or not applicable; R07.9 Chest pain, unspecified
CPT/HCPCS: 71046; 99282

== ENCOUNTER 2018-03-29 10:21 | Emergency (ER) | payer OTHER ==
--- NOTE | 2018-03-29 10:55 | ED ---
Upper Extremity Pain - HPI Summary HPI Summary: Patient is a 62-year-old who presents emergency department for left shoulder injury that occurred yesterday. Patient is [place] [employer] [place] and was lifting a box of tiles yesterday when he felt a pop in his left shoulder and pain has progressively got worse. Denies associated symptoms of numbness, tingling or weakness, denies chest pain or shortness of breath. Symptoms are mild in severity. Moving shoulder makes symptoms worse. Rest makes symptoms better. - History of Current Complaint Chief Complaint: EDExtremityUpper Stated Complaint: LT SHOULDER INJURY Time Seen by Provider: 03/29/18 10:44 Hx Obtained From: Patient - Allergies/Home Medications Allergies/Adverse Reactions: Allergies Allergy/AdvReac Type Severity Reaction Status Date / Time ENVIRONMENTAL Allergy EYES PUFFY Uncoded 01/25/18 09:18 Home Medications: Home Medications Losartan/Hydrochlorothiazide [Losartan-Hctz 100-25 mg Tab] 1 tab PO DAILY [History Confirmed 03/29/18] PMH/Surg Hx/FS Hx/Imm Hx Previously Healthy: Yes Endocrine/Hematology History: Denies: Hx Anticoagulant Therapy, Hx Diabetes, Hx Thyroid Disease Cardiovascular History: Reports: Hx Hypercholesterolemia, Hx Hypertension, Other Cardiovascular Problems/Disorders Denies: Hx Pacemaker/ICD, Hx Peripheral Vascular Disease Respiratory History: Reports: Hx Sleep Apnea Denies: Hx Asthma, Hx Chronic Obstructive Pulmonary Disease (COPD) GI History: Reports: Other GI Disorders - diverticulitis Denies: Hx Ulcer History: Reports: Hx Kidney Stones - YEARS AGO Denies: Hx Renal Disease Musculoskeletal History: Reports: Hx Arthritis, Hx Back Problems Denies: Hx Osteoporosis Sensory History: Reports: Hx Cataracts - BILATERAL Denies: Hx Contacts or Glasses, Hx Glaucoma Opthamlomology History: Reports: Hx Cataracts - BILATERAL Denies: Hx Contacts or Glasses, Hx Glaucoma Neurological History: Denies: Hx Headaches, Hx Seizures, Hx Transient Ischemic Attacks (TIA) Comment Only: Other Neuro Impairments/Disorders - PAIN CLINIC PT Psychiatric History: Reports: Hx Anxiety - undiagnosed?, Hx Depression - undiagnosed? Denies: Hx Panic Disorder - Surgical History Surgery Procedure, Year, and Place: shoulder surgery. right knee surgery. Deviated septum, Cataracts with lens implants Hx Anesthesia Reactions: No - Immunization History Immunizations Up to Date: Yes Infectious Disease History: No Infectious Disease History: Denies: Hx Clostridium Difficile, Hx Hepatitis, Hx Human Immunodeficiency Virus (HIV), Hx of Known/Suspected MRSA, Hx Shingles, Hx Tuberculosis, Hx Known/ Suspected VRE, Hx Known/Suspected VRSA, History Other Infectious Disease, Traveled Outside the [place] in Last 30 Days - Family History Known Family History: Positive: Cardiac Disease, Hypertension - Social History Occupation: Employed Full-time Lives: With Family Alcohol Use: Rare Hx Substance Use: No Substance Use Type: Reports: None Hx Tobacco Use: No Smoking Status (MU): Never Smoked Tobacco Review of Systems Cardiovascular: Negative Negative: Chest Pain Respiratory: Negative Negative: Shortness Of Breath Positive: Other - Left shoulder pain Neurological: Negative Negative: Weakness, Paresthesia, Numbness All Other Systems Reviewed And Are Negative: Yes Physical Exam Triage Information Reviewed: Yes Vital Signs On Initial Exam: Initial Vitals Temp Pulse Resp BP Pulse Ox 97.8 F 63 18 152/87 96 03/29/18 10:35 03/29/18 10:35 03/29/18 10:35 03/29/18 10:35 03/29/18 10:35 Vital Signs Reviewed: Yes Appearance: Positive: Well-Appearing - Pt. sitting on bed in NAD. Skin: Positive: Warm, Dry Head/Face: Positive: Normal Head/Face Inspection Eyes: Positive: Normal, EOMI Musculoskeletal: Positive: Other - No palpable pain to left shoulder or clavicle. Good radial pulse and 5/5 strength in hand. Unable to abduct passed 90 degrees. Neurological: Positive: Normal, CN Intact II-III Psychiatric: Positive: Affect/Mood Appropriate Diagnostics - Vital Signs Vital Signs Temp Pulse Resp BP Pulse Ox 03/29/18 10:35 97.8 F 63 18 152/87 96 - Laboratory Lab Statement: Any lab studies that have been ordered have been reviewed, and results considered in the medical decision making process. Course/Dx - Course Course Of Treatment: Pt. presenting with left shoulder injury that occurred at work during having lifting. X-rays negative for acute findings, reading per radiology. Suspect possible rotator cuff injury based on patient's exam and injury. Recommend follow-up with orthopedics for further evaluation and possible MRI. To ice, avoid heavy lifting, gentle range of motion. Patient understands and agrees with plan. - Diagnoses Differential Diagnosis/HQI/PQRI: Positive: Arthritis, Bursitis, Fracture (Closed ), Strain, Sprain Provider Diagnoses: Injury of shoulder, left Discharge - Sign-Out/Discharge Documenting (check all that apply): Patient Departure - Discharge Plan Condition: Good Disposition: HOME Patient Education Materials: Rotator Cuff Injury (ED), Shoulder Pain (ED) Referrals: Abi Alcantar MD [Primary Care Provider] - Casey Perkins MD [Medical Doctor] - Additional Instructions: Schedule a follow up appointment orthopedics for further evaluation Ice and rest shoulder Tylenol or Motrin for pain as directed Avoid heavy lifting Return to ER if symptoms change or worsen - Billing Disposition and Condition Condition: GOOD Disposition: Home
--- NOTE | 2018-03-29 12:01 | RAD ---
HISTORY: injury, left shoulder pain COMPARISONS: None VIEWS: 4 , Frontal internal rotation, external rotation, outlet, and axillary views of the left shoulder FINDINGS: BONE DENSITY: Normal. BONES: There is no displaced fracture. JOINTS: There is no arthropathy. ALIGNMENT: There is no dislocation. SOFT TISSUES: Unremarkable. OTHER FINDINGS: None. IMPRESSION: NO ACUTE OSSEOUS INJURY. IF SYMPTOMS PERSIST, RECOMMEND REPEAT IMAGING.
[2018-03-29 12:10] VITALS: BP 150/98
== END 2018-03-29 12:09 | disposition home or self-care (01) ==
LOC: ED 10:21
DX: S49.92XA Unspecified injury of left shoulder and upper arm, initial encounter (principal); X50.9XXA Other and unspecified overexertion or strenuous movements or postures, initial encounter; Y92.9 Unspecified place or not applicable
CPT/HCPCS: 99282